=== PATIENT | female | born 1955 | race African-American/Black ===

== ENCOUNTER 2017-08-17 07:46 | Emergency (ER) | payer OTHER ==
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
[2017-08-17 08:27] VITALS: O2SAT 96
--- NOTE | 2017-08-17 08:59 | CPEKG ---
Heart Rate: 85 RR Interval: 706 P-R Interval: 192 QRSD Interval: 78 QT Interval: 400 QTC Interval: 476 P [place]: 13 QRS [place]: -32 T Wave [place]: 34 EKG Severity - ABNORMAL ECG - EKG Impression: SINUS RHYTHM EKG Impression: INFERIOR INFARCT, AGE INDETERMINATE Electronically Signed By: Doroteo Jeffrey 19-Aug-2017 17:28:57
[2017-08-17 09:53] VITALS: BP 141/96; PULSE 82; RESP 19; TEMP 97.9
== END 2017-08-17 09:53 | disposition home or self-care (01) ==
DX: S40.012A Contusion of left shoulder, initial encounter (principal); S29.9XXA Unspecified injury of thorax, initial encounter; S93.401A Sprain of unspecified ligament of right ankle, initial encounter; I10 Essential (primary) hypertension; E11.9 Type 2 diabetes mellitus without complications; Z79.84 Long term (current) use of oral hypoglycemic drugs; V89.2XXA Person injured in unspecified motor-vehicle accident, traffic, initial encounter; Y92.410 Unspecified street and highway as the place of occurrence of the external cause; Y93.89 Activity, other specified
CPT/HCPCS: A4565; L4386